=== PATIENT | male | born 2000 | race Caucasian/White ===

== ENCOUNTER 2021-04-13 08:49 | Emergency (ER) | payer OTHER ==
[2021-04-13] MEDS ORDERED: Ketorolac Tromethamine 30 MG/ML VIAL ONE (09:09)
== END 2021-04-13 10:47 | disposition home or self-care (01) ==
LOC: ERS 08:49
DX: I86.1 Scrotal varices (principal); N50.3 Cyst of epididymis; F17.290 Nicotine dependence, other tobacco product, uncomplicated
CPT/HCPCS: 76870; 93976; 96372; J1885

== ENCOUNTER 2022-07-16 19:38 | Emergency (ER) | payer OTHER | END 2022-07-16 20:27 | disposition left against medical advice (07) | LOC: ERS 19:38 | DX: Z53.29 Procedure and treatment not carried out because of patient's decision for other reasons (principal) ==